=== PATIENT | female | born 1995 | race Two or more races ===

== ENCOUNTER → 2020-11-02 | Outpatient (CLI) | payer OTHER ==
[~2020-11-02] MED LIST: OMNIPAQUE 350 MG/ML, 75ML BOTTLE ONE
== END | disposition home or self-care (01) ==
LOC: RAD 16:01
PROVIDERS: ATTEND Neurological Surgery
DX: J32.1 Chronic frontal sinusitis (principal); R22.0 Localized swelling, mass and lump, head
CPT/HCPCS: 70487; Q9967